=== PATIENT | male | born 1965 | race Caucasian/White ===

== ENCOUNTER 2021-06-21 21:28 | Emergency (ER) | payer OTHER ==
[~2021-06-21] VITALS: Ht 165.1 cm; Wt 81.6 kg
[2021-06-21 21:32] VITALS: BP 163/112
--- NOTE | 2021-06-21 22:54 | NUR ---
SEEN AND EXAMINED BY GIGI
[2021-06-21] MEDS ORDERED: KETOROLAC 15 MG/ML VIAL IM ONE (23:00)
--- NOTE | 2021-06-21 23:07 | NUR ---
MEDCIATED PER [facility] ORDER, TOLERAYED WELL.
--- NOTE | 2021-06-21 23:13 | NUR ---
PT RETURN FROM XRAY
[2021-06-22 00:13] VITALS: BP 163/112
--- NOTE | 2021-06-22 00:14 | NUR ---
Patient discharged with v/s stable. Written and verbal after care instructions given and explained. Patient verbalized understanding. Ambulatory with steady gait. All questions addressed prior to discharge. Advised to follow up with PMD.
== END 2021-06-22 00:14 | disposition home or self-care (01) ==
LOC: MED 21:28
DX: R07.81 Pleurodynia (principal); W19.XXXA Unspecified fall, initial encounter; Y93.89 Activity, other specified; Y92.89 Other specified places as the place of occurrence of the external cause; Y99.8 Other external cause status
CPT/HCPCS: 71101; 96372; 99283; J1885